=== PATIENT | female | born 1955 | race Caucasian/White ===

== ENCOUNTER → 2017-04-28 | Outpatient (CLI) | payer BC ==
[~2017-04-28] MED LIST: ASPIRIN81 M1 PO; BYSTOLIC10 MG PO; CALTRATE 600+D PO; CENTRUM SILVER PO; LEVSIN; LORTAB 7.5-5001 TAB PO; OMEPRAZOLE10 MG PO; OMEPRAZOLE40 MG; PHENERGAN25 MG PO; PROBIOTIC1 EAC1 PO; SINGULAIR PO; TOPROL XL PO; VITAMIN E400 UNI2 PO; VOLTAREN75 MG PO
--- NOTE | ~2017-04-28 | MR18 ---
[facility] A Service of [facility] RADIOLOGY TEXT RESULTS PATIENT: JULIÁN HUIZAR LOCATION: [facility] : 51 UNIT #: [id number] AGE: [address]: PATT GARCIA MD SEX: F ORDER DR: [id number] [place] [id number] O MR#: [id number] #: [id number] NAME: JULIÁN HUIZAR : 1955 SEX: F STUDY DATE/TIME: 04/28/2017 12:15 UNIT: [facility] ROOM: STUDY DESCRIPTION: MR Brain Wo Contrast Attending Physician: Patt Garcia M.D. Referring Physician: Patt Garcia M.D. Ordering Physician: Patt Garcia M.D. Primary Care Physician: Patt Garcia M.D. MRI CENTER REPORT This report is preliminary unless electronic signature is present. EXAM Brain MRI without HISTORY Several episodes of syncope/near-syncope, usually only when getting out of a car after driving for the past year. No history of trauma or cancer. Transient neurologic symptoms. COMMENT MRI of the brain was performed without contrast using routine 1.5T imaging technique. There is no evidence for a recent ischemic insult on the diffusion series. There is no comparison study of the brain. Incidental note is made of a partially empty sella. There is no MRI evidence for intracranial hemorrhage. There is mild white matter signal abnormality with too numerous to count small foci in the subcortical deep and periventricular white matter as well as in the external capsules bilaterally. It is most confluent periventricular white matter and the nonspecific is likely due to small vessel disease in age group. There is no intracranial mass effect. There is no extraaxial fluid collection. Patient probably has an anterior dominant circulation with a developmentally small vertebrobasilar system. This could predispose the patient to episodes of dizziness/lightheadedness. If there is concern clinically for vertebrobasilar insufficiency I would suggest correlation with CT angiography of the neck and vessels or MR angiography of the neck vessels since the exact vascular anatomy is not well delineated on the routine brain MRI. The mastoid air cells are clear. The paranasal sinuses are clear. No intracranial mass effect. IMPRESSION 1. No evidence for recent ischemic insult on the diffusion series. [facility] A Service of [facility] RADIOLOGY TEXT RESULTS PATIENT: JULIÁN HUIZAR LOCATION: [facility] : 51 UNIT #: [id number] AGE: [address]: PATT GARCIA MD SEX: F ORDER DR: 2. Probable sequelae of small vessel disease. 3. 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 If there is clinical concern for vertebrobasilar insufficiency given the symptoms of dizziness/lightheadedness, consider correlation with either MR or CT angiography of the head and neck vessels to evaluate for superimposed vascular disease. Developmentally small vessels could predispose the patient to vertebrobasilar insufficiency in the setting of superimposed disease. Dictated by... Jonna Manzo M.D. THIS IS AN ELECTRONICALLY VERIFIED REPORT Jonna Manzo M.D. at 04/29/2017 7:30 AM LUCERO/marcello TD: 04/29/2017 04:20 JOB #: [id number] MRI CENTER REPORT Page 1 of 1
== END | disposition home or self-care (01) ==
LOC: SMRI 11:25
DX: R29.818 Other symptoms and signs involving the nervous system (principal)
CPT/HCPCS: 70551